=== PATIENT | male | born 1955 | race Caucasian/White ===

== ENCOUNTER 2017-10-17 00:56 | Observation (INO) | payer BC ==
[2017-10-17] MEDS ORDERED: Aspirin 81 MG Tab.Chew PO ONE (01:06)
[2017-10-17] MEDS ORDERED: Sodium Chloride 0.9% 10 ML Syringe FLUSH PRN (01:06)
[2017-10-17] MEDS ORDERED: Sodium Chloride 0.9% 2.5 ML Syringe FLUSH PRN (01:06)
[2017-10-17] MEDS ORDERED: Nitroglycerin 2% Oint 1 GM UD Packet TOP ONE (01:14)
--- NOTE | 2017-10-17 01:18 | EDM.PDOC ---
ED HPI GENERAL MEDICAL PROBLEM - General Chief Complaint: Chest Pain Stated Complaint: CHEST PAIN AND LEFT ARM NUMBNESS Time Seen by Provider: 10/17/17 01:05 - History of Present Illness INITIAL COMMENTS - FREE TEXT/NARRATIVE: HISTORY AND PHYSICAL: History of present illness: The patient is a [id number] male with a history of hypertension COPD and tobacco use who follows with a physician back in [place] but spends the majority of his time here in town and presents with complaints of episodic left- sided chest pain that radiates to his jaw and his left upper extremity. The patient says this been going on since Saturday morning, 4 days ago, and has been occurring sporadically mostly during the daytime when he is doing activities. He describes it as a sharp pain that radiates to jaw or arm and it is sometimes associated with shortness of breath but no nausea or diaphoresis. He says the discomfort only is brief and last only a few minutes and then goes away. Yesterday he had a total of 20 episodes of this discomfort. He says his been sleeping his usual amount and has not woken with the comfort tonight he came in because it did wake him and because he felt sweaty and it was more intense. He currently rates the discomfort is a 1/10. He has no abdominal complaints no vomiting no diarrhea no fevers chills cough or recent trauma to his chest. He says he had a stress test many years ago and his father had heart disease but he is unsure of the age. Patient does drink on a daily basis, beer, and smokes cigarettes but denies drug use. He has no leg pain or swelling. Review of systems: As per history of present illness and below otherwise all systems reviewed and negative. Past medical history: As per history of present illness and as reviewed below otherwise noncontributory. Surgical history: As per history of present illness and as reviewed below otherwise noncontributory. Social history: No reported history of drug or alcohol abuse. Family history: As per history of present illness and as reviewed below otherwise noncontributory. Physical exam: General: Well-developed well-nourished man who is mildly overweight and nontoxic and speaks clearly and easily in the ED. Vital signs of been reviewed by me. I asked him about his current blood pressure and he states that it usually does run on the high side but not as high as this evening. HEENT: Atraumatic, normocephalic, negative for conjunctival pallor or scleral icterus, mucous membranes moist, throat clear, neck supple, nontender, trachea midline. Lungs: Clear to auscultation but diminished in the bases with no work of breathing stridor or wheezing, breath sounds equal bilaterally, chest nontender. Heart: S1S2, regular, negative for clicks, rubs, or JVD. Abdomen: Soft, nondistended, nontender. Negative for masses or hepatosplenomegaly. NABS Pelvis: Stable nontender. Genitourinary: Deferred. Rectal: Deferred. Extremities: Atraumatic, negative for cords or calf pain. Neurovascular unremarkable. No pedal edema or leg asymmetry Neuro: Awake, alert, oriented. Cranial nerves II through XII unremarkable. Cerebellum unremarkable. Motor and sensory unremarkable throughout. Exam nonfocal. Diagnostics: EKG CBC CMP INR troponin chest x-ray Therapeutics: IV O2 monitor aspirin, Nitropaste for blood pressure management and ACS Patient has been stable in the ER with no chest pain and his blood pressure has improved to 154/93. I discussed all testing results with the patient and have recommended observation admission and he is agreeable. I will discuss this case with Dr. Pritchard our hospitalist and plan for 23 hour observation with serial EKGs and cardiac enzymes as well as blood pressure management Impression: Episodic chest pain with hypertension poorly controlled Definitive disposition and diagnosis as appropriate pending reevaluation and review of above. chest Pain Score (Numeric/FACES): 8 - Related Data Allergies Allergy/AdvReac Type Severity Reaction Status Date / Time No Known Allergies Allergy Verified 10/17/17 01:04 Home Meds: Home Meds Lisinopril 10 mg PO DAILY 10/17/17 [History] Pantoprazole [ProTONIX] 40 mg PO DAILY 10/17/17 [History] Propranolol HCl [Propranolol HCl ER] 1 cap PO DAILY 10/17/17 [History] Tamsulosin HCl 0.4 mg PO DAILY 10/17/17 [History] Social & Family History - Tobacco Use Smoking Status *Q: Current Every Day Smoker Years of Tobacco use: 40 Packs/Tins Daily: 1 - Caffeine Use Caffeine Use: Reports: Coffee Caffeine Use Comment: 2 cups daily - Recreational Drug Use Recreational Drug Use: No ED ROS GENERAL - Review of Systems Review Of Systems: ROS reveals no pertinent complaints other than HPI. ED EXAM, GENERAL - Physical Exam Exam: See Below (see dictation) Course - Vital Signs Last Recorded V/S: Last Vital Signs Temp 36.4 C 10/17/17 00:56 Pulse 90 10/17/17 00:56 Resp 20 10/17/17 00:56 BP 186/109 H 10/17/17 00:56 Pulse Ox 94 L 10/17/17 00:56 - Orders/Labs/Meds Orders: Active Orders 24 hr Category Date Time Status Patient Status [ADT] Stat ADT 10/17/17 01:57 Ordered Cardiac Monitoring [RC] . DIRECTED Care 10/17/17 01:05 Active EKG Documentation Completion [RC] STAT Care 10/17/17 01:05 Active Oxygen Therapy, ED [RC] ASDIRECTED Care 10/17/17 01:05 Active Pulse Oximetry [RC] ASDIRECTED Care 10/17/17 01:05 Active Chest 1V Frontal [CR] Stat Exams 10/17/17 01:06 Taken Sodium Chloride 0.9% [Saline Flush] Med 10/17/17 01:06 Active 10 ml FLUSH ASDIRECTED PRN Sodium Chloride 0.9% [Saline Flush] Med 10/17/17 01:06 Active 2.5 ml FLUSH ASDIRECTED PRN Saline Lock Insert [OM.PC] Stat Oth 10/17/17 01:05 Ordered Medication Orders Sodium Chloride (Saline Flush) 10 ml FLUSH ASDIRECTED PRN PRN Reason: Keep Vein Open Sodium Chloride (Saline Flush) 2.5 ml FLUSH ASDIRECTED PRN PRN Reason: Keep Vein Open Labs: Laboratory Tests 10/17/17 10/17/17 10/17/17 Range/Units 01:05 01:05 01:05 WBC 6.97 (4.0-11.0) K/uL RBC 5.07 (4.50-5.90) M/uL Hgb 15.5 (13.0-17.0) g/dL Hct 46.1 (38.0-50.0) % MCV 90.9 (80.0-98.0) fL MCH 30.6 (27.0-32.0) pg MCHC 33.6 (31.0-37.0) g/dL RDW Std Deviation 41.9 (28.0-62.0) fl RDW Coeff of Belinda 13 (11.0-15.0) % Plt Count 263 (150-400) K/uL MPV 10.30 (7.40-12.00) fL Neut % (Auto) 42.8 L (48.0-80.0) % Lymph % (Auto) 43.8 H (16.0-40.0) % [place]ax % (Auto) 10.8 (0.0-15.0) % Eos % (Auto) 1.7 (0.0-7.0) % Baso % (Auto) 0.9 (0.0-1.5) % Neut # (Auto) 3.0 (1.4-5.7) K/uL Lymph # (Auto) 3.1 H (0.6-2.4) K/uL [place]ax # (Auto) 0.8 (0.0-0.8) K/uL Eos # (Auto) 0.1 (0.0-0.7) K/uL Baso # (Auto) 0.1 (0.0-0.1) K/uL INR 1.02 (0.86-1.11) Sodium 142 (136-146) mmol/L Potassium 3.8 (3.5-5.1) mmol/L Chloride 103 (98-110) mmol/L Carbon Dioxide 29 (21-31) mmol/L BUN 14 (6.0-23.0) mg/dL Creatinine 0.8 (0.6-1.5) mg/dL Est Cr Clr Drug Dosing TNP Estimated GFR (MDRD) > 60.0 ml/min Glucose 100 (60-110) mg/dL Calcium 9.7 (8.8-10.8) mg/dL Total Bilirubin 0.4 (0.1-1.5) mg/dL AST 21 (5-40) IU/L ALT 18 (8-54) IU/L Alkaline Phosphatase 60 (40-150) Troponin I < 0.10 (0.0-0.29) NG/ML Total Protein 7.1 (6.0-8.0) g/dL Albumin 4.0 (3.4-4.8) g/dL Globulin 3.1 (2.0-3.5) g/dL Albumin/Globulin Ratio 1.3 (1.3-2.8) Meds: Medications Generic Name Dose Route Start Last Admin Trade Name Freq PRN Reason Stop Dose Admin Sodium Chloride 10 ml 10/17/17 01:06 Saline Flush FLUSH ASDIRECTED PRN Keep Vein Open Sodium Chloride 2.5 ml 10/17/17 01:06 Saline Flush FLUSH ASDIRECTED PRN Keep Vein Open Discontinued Medications Generic Name Dose Route Start Last Admin Trade Name Akil PRN Reason Stop Dose Admin Aspirin 324 mg 10/17/17 01:06 10/17/17 01:12 Aspirin PO 10/17/17 01:07 324 mg ONETIME ONE Administration Nitroglycerin 1 gm 10/17/17 01:14 10/17/17 01:17 Nitro-Bid 2% TOP 10/17/17 01:15 1 gm ONETIME ONE Administration Departure - Departure Time of Disposition: 01:58 Disposition: Refer to Observation Condition: Good Clinical Impression: Chest pain Qualifiers: Chest pain type: unspecified Qualified Code(s): R07.9 - Chest pain, unspecified - Discharge Information Referrals: PCP,None [Primary Care Provider] - Forms: ED Department Discharge - My Orders Last 24 Hours: My Active Orders 10/17/17 01:05 Cardiac Monitoring [RC] . DIRECTED EKG Documentation Completion [RC] STAT Oxygen Therapy, ED [RC] ASDIRECTED Pulse Oximetry [RC] ASDIRECTED Saline Lock Insert [OM.PC] Stat 10/17/17 01:06 Chest 1V Frontal [CR] Stat Sodium Chloride 0.9% [Saline Flush] 10 ml FLUSH ASDIRECTED PRN Sodium Chloride 0.9% [Saline Flush] 2.5 ml FLUSH ASDIRECTED PRN 10/17/17 01:57 Patient Status [ADT] Stat - Assessment/Plan Last 24 Hours: My Active Orders 10/17/17 01:05 Cardiac Monitoring [RC] . DIRECTED EKG Documentation Completion [RC] STAT Oxygen Therapy, ED [RC] ASDIRECTED Pulse Oximetry [RC] ASDIRECTED Saline Lock Insert [OM.PC] Stat 10/17/17 01:06 Chest 1V Frontal [CR] Stat Sodium Chloride 0.9% [Saline Flush] 10 ml FLUSH ASDIRECTED PRN Sodium Chloride 0.9% [Saline Flush] 2.5 ml FLUSH ASDIRECTED PRN 10/17/17 01:57 Patient Status [ADT] Stat
[2017-10-17 01:39] LABS: CHLORIDE,CL 103 mmol/L (98-110); SODIUM,NA 142 mmol/L (136-146)
[2017-10-17] MEDS ORDERED: LORazepam 2 MG/ML SDV IVPUSH PRN (02:42)
--- NOTE | 2017-10-17 09:05 | CR ---
EXAM DATE: 10/17/17 PATIENT'S AGE: 62 Patient: KAMILLE PATEL Facility: [place], [place] Site . Site : 1955 Study: XRay Chest [id number]/14/2017 1:41:24 AM Ordering Physician: Bert Zhang Final Report: INDICATION: Chest pain. TECHNIQUE: Chest radiograph 1 view COMPARISON: 08/27/2014. FINDINGS: Cardiovascular and mediastinum: The heart silhouette is normal in size and morphology. The mediastinum is normal in appearance. Lungs and pleural spaces: Both lungs are unremarkable in appearance. No sign of pleural effusion seen. No pneumothorax is identified. Bones and soft tissues: No significant findings. IMPRESSION: 1. No acute cardiopulmonary disease is seen. Dictated by Sy Rodriguez MD @ 10/17/2017 1:44:11 AM Dictated by: Sy Rodriguez MD @ 10/17/2017 01:44:16 (Electronic Signature) Report Signed by Proxy. [facility]
--- NOTE | 2017-10-17 09:23 | PCM.HP ---
H&P History of Present Illness - General Date of Service: 10/17/17 Admit Problem/Dx: Admission Diagnosis/Problem Admission Diagnosis/Problem Chest pain - History of Present Illness Initial Comments - Free Text/Narative: The patient is a [id number] male with a history of hypertension COPD and tobacco use admitted for chest pain. The patient says this been going on since Saturday morning, 4 days ago, and has been occurring sporadically mostly during the daytime when he is doing activities. He describes it as a sharp pain that radiates to jaw or arm and it is sometimes associated with shortness of breath but no nausea or diaphoresis. He did have left arm numbness. He says the discomfort only is brief and last only a few minutes and then goes away.He says his been sleeping his usual amount and has not woken with the comfort tonight he came in because it did wake him and because he felt sweaty and it was more intense with left arm numbness. He has no abdominal complaints no vomiting no diarrhea no fevers chills cough or recent trauma to his chest. He says he had a stress test many years ago and his father had heart disease and at age 65. Patient does drink on a daily basis, beer, and smokes cigarettes but denies drug use. chest Pain Score (Numeric/FACES): 8 - Related Data Allergies/Adverse Reactions: Allergies Allergy/AdvReac Type Severity Reaction Status Date / Time No Known Allergies Allergy Verified 10/17/17 03:08 Home Medications: Home Meds Aspirin [Lo-Dose Aspirin EC] 81 mg PO DAILY #30 tablet. 10/17/17 [Rx] Lisinopril 10 mg PO DAILY 10/17/17 [History] Pantoprazole [ProTONIX] 40 mg PO DAILY 10/17/17 [History] Propranolol HCl [Propranolol HCl ER] 1 cap PO DAILY 10/17/17 [History] Tamsulosin HCl 0.4 mg PO DAILY 10/17/17 [History] Past Medical History - Past Health History Medical/Surgical History: Denies Medical/Surgical History Cardiovascular History: Reports: Hypertension Respiratory History: Reports: COPD Oncologic (Cancer) History: Reports: Prostate - Past Surgical History Male Surgical History: Reports: Prostate Biopsy, Other (See Below) Other Male Surgeries/Procedures: Prostate cancer Social & Family History - Family History Family Medical History: Noncontributory - Tobacco Use Smoking Status *Q: Current Every Day Smoker Years of Tobacco use: 40 Packs/Tins Daily: 1 Used Tobacco, but Quit: No Second Hand Smoke Exposure: No - Caffeine Use Caffeine Use: Reports: Coffee Caffeine Use Comment: 2 cups daily - Alcohol Use Days Per Week of Alcohol Use: 7 Number of Drinks Per Day: 8 Total Drinks Per Week: 56 Date of Last Drink: 10/16/17 Time of Last Drink: 20:00 - Recreational Drug Use Recreational Drug Use: No H&P Review of Systems - Review of Systems: Review Of Systems: See Below General: Reports: No Symptoms HEENT: Reports: No Symptoms Pulmonary: Reports: No Symptoms Cardiovascular: Reports: No Symptoms Gastrointestinal: Reports: No Symptoms Genitourinary: Reports: No Symptoms Musculoskeletal: Reports: No Symptoms Skin: Reports: No Symptoms Psychiatric: Reports: No Symptoms Neurological: Reports: No Symptoms Hematologic/Lymphatic: Reports: No Symptoms Immunologic: Reports: No Symptoms Exam - Exam Exam: See Below - Vital Signs Vital Signs: Last Vital Signs Temp 97.6 F 10/17/17 07:45 Pulse 67 10/17/17 07:45 Resp 20 10/17/17 07:45 BP 149/84 H 10/17/17 07:45 Pulse Ox 93 L 10/17/17 07:45 Weight: 85.4 kg - Exam General: Alert, Oriented HEENT: Conjunctiva Clear, EOMI Neck: Supple, Trachea Midline Lungs: Clear to Auscultation, Normal Respiratory Effort Cardiovascular: Regular Rate, Regular Rhythm GI/Abdominal Exam: Normal Bowel Sounds Rectal (Males) Exam: Normal Exam Extremities: Normal Inspection Skin: Warm, Dry Neurological: Cranial Nerves Intact Psychiatric: Alert, Normal Affect, Normal Mood - Patient Data Lab Results Last 24 hrs: Laboratory Results - last 24 hr 10/17/17 Range/Units 07:08 Troponin I < 0.10 (0.0-0.29) NG/ML Result Diagrams: 10/17/17 01:05 10/17/17 01:05 *Q Meaningful Use (ADM) - VTE *Q VTE Criteria *Q: - Stroke *Q Stroke Criteria *Q: - AMI *Q AMI Criteria *Q: Problem List Initiated/Reviewed/Updated: Yes Orders Last 24hrs: Active Orders 24 hr Category Date Time Status CIWAA Assessment [RC] Q4H Care 10/17/17 02:42 Active Telemetry Monitoring [Cardiac Monitoring] [RC] Q8H Care 10/17/17 02:09 Active Heart Healthy Diet [DIET] Diet 10/17/17 Breakfast Active TROPONIN I [CHEM] Q6H Lab 10/17/17 13:00 Ordered LORazepam [Ativan] Med 10/17/17 02:42 Active See Protocol IVPUSH Q4H PRN Medication Orders Lorazepam (Ativan) 0 mg IVPUSH Q4H PRN; Protocol PRN Reason: Withdrawal Symptoms Sodium Chloride (Saline Flush) 10 ml FLUSH ASDIRECTED PRN PRN Reason: Keep Vein Open Sodium Chloride (Saline Flush) 2.5 ml FLUSH ASDIRECTED PRN PRN Reason: Keep Vein Open Assessment/Plan Comment:: 62 yo male admitted for chest pain CP: EKG no acute ST changes. Troponin x 2 negative. nitropaste helping with chest pain HTN: resume home medications of lisinopril, propanolol GERD; continue protonix DISCHARGE SUMMARY 62 yo male with history of HTN admitted for chest pain. His EKG did not reveal any acute ST changes.CXR negative. Troponin x 3 negative. His CBC and BMP unremarkable. Lipid panel revealed TG 202, CH 192, LDL 89, HDL 63. He was monitored in telemetry which did not reveal any arrhythmias. He is requesting to go home today. He is chest pain free. He is discharged with aspirin 81 mg po qd and to resume home medications. He is to follow up PCP and senior cost analyst Dr. Contreras. A script for outpatient stress test given. He had agreed.
[2017-10-17] MEDS ORDERED: Pantoprazole 40 MG Tab.CR PO SCH (09:30)
[2017-10-17] MEDS ORDERED: Lisinopril 10 MG Tab PO SCH (09:30)
[2017-10-17] MEDS ORDERED: Aspirin 81 MG Tab.EC PO SCH (09:30)
[2017-10-17] MEDS ORDERED: Propranolol 60 MG Cap.ER PO SCH (12:15)
[2017-10-18] MEDS ORDERED: Tamsulosin 0.4 MG Cap.ER PO SCH (09:00)
== END 2017-10-17 15:35 | disposition home or self-care (01) ==
LOC: MW.ED 00:56 → MW.MS 01:57 → UNDODISOB 15:35
PROVIDERS: ADMIT Internal Medicine; ATTEND Internal Medicine
DX: R07.9 Chest pain, unspecified (principal); I10 Essential (primary) hypertension; J44.9 Chronic obstructive pulmonary disease, unspecified; Z98.890 Other specified postprocedural states; F17.210 Nicotine dependence, cigarettes, uncomplicated; Z79.82 Long term (current) use of aspirin; Z79.899 Other long term (current) drug therapy
CPT/HCPCS: 36415; 71010; 80053; 80061; 84484; 85025; 85610; 99285; A9270; G0378

== ENCOUNTER 2020-07-07 06:29 | Day surgery (SDC) | payer BC ==
[2020-07-07] MEDS ORDERED: Lactated Ringers 1,000 ML IV SCH (06:45)
--- NOTE | 2020-07-07 07:19 | PCM.PREANE ---
Preanesthetic Assessment - Anesthesia/Transfusion/Family Hx Anesthesia History: Prior Anesthesia Without Reaction Family History of Anesthesia Reaction: No Transfusion History: No Prior Transfusion(s) - Review of Systems General: No Symptoms Pulmonary: No Symptoms Cardiovascular: No Symptoms Gastrointestinal: No Symptoms Neurological: No Symptoms Other: Reports: None - Physical Assessment NPO Status Date: 07/06/20 Vital Signs: Last Vital Signs Temp 97.5 F 07/07/20 07:06 Pulse 79 07/07/20 07:06 Resp 16 07/07/20 07:06 BP 161/95 H 07/07/20 07:06 Pulse Ox 96 07/07/20 07:06 Height: 5 ft 10 in Weight: 89.811 kg ASA Class: 2 Mental Status: Alert & Oriented x3 Airway Class: Mallampati = 2 Dentition: Reports: Bridge (lateral mandibular) ROM/Head Extension: Full Lungs: Clear to Auscultation, Normal Respiratory Effort Cardiovascular: Regular Rate, Regular Rhythm - Allergies Allergies/Adverse Reactions: Allergies Allergy/AdvReac Type Severity Reaction Status Date / Time No Known Allergies Allergy Verified 07/07/20 07:07 - Blood Blood Available: No - Anesthesia Plan Pre-Op Medication Ordered: None - Acknowledgements Anesthesia Type Planned: General Anesthesia (tiva) Pt an Appropriate Candidate for the Planned Anesthesia: Yes Alternatives and Risks of Anesthesia Discussed w Pt/Guardian: Yes Pt/Guardian Understands and Agrees with Anesthesia Plan: Yes PreAnesthesia Questionnaire - Past Health History Medical/Surgical History: Denies Medical/Surgical History Cardiovascular History: Reports: Hypertension Respiratory History: Reports: COPD Other Respiratory History: uses rescue inhaler about once a week Gastrointestinal History: Reports: Colon Polyp, GERD, Hemorrhoids, PUD, Other (See Below) Other Gastrointestinal History: hx of anal fissures Genitourinary History: Reports: Prostate Disorder Other Genitourinary History: hx of prostate cancer- had radiation implants Musculoskeletal History: Reports: Fracture Other Musculoskeletal History: states hx of "multiple" fx Psychiatric History: Reports: Anxiety Other Psychiatric History: no medication Oncologic (Cancer) History: Reports: Prostate Other Dermatologic History: thinks he has eczema in right hand- no medication - Past Surgical History Head Surgeries/Procedures: Reports: None GI Surgical History: Reports: Appendectomy, Colonoscopy Male Surgical History: Reports: Prostate Biopsy, Other (See Below) Other Male Surgeries/Procedures: Prostate cancer Musculoskeletal Surgical History: Reports: Arthroscopic Knee, Other (See Below) Other Musculoskeletal Surgeries/Procedures:: closed reduction of fx elbow - SUBSTANCE USE Smoking Status *Q: Current Every Day Smoker Tobacco Use Within Last Twelve Months: Cigarettes Days Per Week of Alcohol Use: 7 Number of Drinks Per Day: 6 Total Drinks Per Week: 42 Recreational Drug Use History: No - HOME MEDS Home Medications: Home Meds Lisinopril 10 mg PO DAILY 10/17/17 [History] Pantoprazole [ProTONIX] 40 mg PO DAILY 10/17/17 [History] Tamsulosin HCl 0.4 mg PO DAILY 10/17/17 [History] Albuterol [Ventolin HFA] 1 - 2 puff INH Q4H PRN 07/01/20 [History] Budesonide/Formoterol [Symbicort 80-4.5 MCG] 2 puff INH BID 07/01/20 [History] Propranolol [Inderal LA] 80 mg PO DAILY 07/01/20 [History] hydroCHLOROthiazide [Hydrochlorothiazide] 12.5 mg PO DAILY 07/01/20 [History] - CURRENT (IN HOUSE) MEDS Current Meds: Current Medications Lactated Ringer's (Ringers, Lactated) 1,000 mls @ 125 mls/hr IV ASDIRECTED [facility] Last Admin: 07/07/20 07:07 Dose: 125 mls/hr Documented by:
[2020-07-07] MEDS ORDERED: Propofol 200 MG/20 ML SDV ONE (07:41)
[2020-07-07] MEDS ORDERED: Midazolam 1 MG/ML 2 ML SDV ONE (07:41)
[2020-07-07] MEDS ORDERED: Glycopyrrolate 0.2 MG/ML SDV ONE (07:43)
--- NOTE | 2020-07-07 08:59 | PCM.POSTAN ---
POST ANESTHESIA ASSESSMENT - MENTAL STATUS Mental Status: Alert - VITAL SIGNS Vital Signs: Last Vital Signs Temp 36.4 C 07/07/20 07:06 Pulse 71 07/07/20 08:57 Resp 14 07/07/20 08:57 BP 121/82 07/07/20 08:57 Pulse Ox 94 L 07/07/20 08:57 - RESPIRATORY Respiratory Status: Respiratory Rate WNL - CARDIOVASCULAR CV Status: Pulse Rate WNL - GASTROINTESTINAL GI Status: No Symptoms - POST OP HYDRATION Hydration Status: Adequate & Stable
[2020-07-07] MEDS ORDERED: cefOXitin 1 GM Vial ONE (09:00)
[2020-07-07] MEDS ORDERED: Sodium Chloride 0.9% 20 ML ONE (09:00)
--- NOTE | 2020-07-07 09:02 | PCM.OPNOTE ---
- General Post-Op/Procedure Note Date of Surgery/Procedure: 07/07/20 Operative Procedure(s): Colonoscopy and hot snare polypectomy Findings: Colon polyp at 80cm, ascending colon. # [id number] Pre Op Diagnosis: History of colon polyps Post-Op Diagnosis: colon polyp, hemorroids Anesthesia Technique: Moderate Sedation Primary Surgeon: Jose J Pritchard Pathology: colon polyp Complications: None Condition: Good
--- NOTE | 2020-07-07 10:09 | PCM48HPAN ---
Post Anesthesia Note - EVALUATION WITHIN 48HRS OF ANESTHETIC Vital Signs in Normal Range: Yes Patient Participated in Evaluation: Yes Respiratory Function Stable: Yes Airway Patent: Yes Cardiovascular Function Stable: Yes Hydration Status Stable: Yes Pain Control Satisfactory: Yes Nausea and Vomiting Control Satisfactory: Yes Mental Status Recovered: Yes Vital Signs: Last Vital Signs Temp 97.5 F 07/07/20 07:06 Pulse 71 07/07/20 08:57 Resp 14 07/07/20 08:57 BP 121/82 07/07/20 08:57 Pulse Ox 94 L 07/07/20 08:57
--- NOTE | 2020-07-08 09:46 | OR ---
SURGEON: ROSEANN GARG MD DATE OF PROCEDURE: 07/07/2020 PREOPERATIVE DIAGNOSIS: History of colon polyps. POSTOPERATIVE DIAGNOSIS: Colon polyp at approximately 80 cm, appeared to be in the ascending-hepatic flexure area. PROCEDURES PERFORMED: 1. Colonoscopy. 2. Hot snare polypectomy. PRIMARY SURGEON: Roseann Garg MD ANESTHESIA: General. EXTENT OF COLONOSCOPY: To the cecum. WITHDRAWAL TIME: 13 minutes. LIMITATIONS: None. BOWEL PREP: Very good. REASON FOR PROCEDURE: The patient is a pleasant 65-year-old gentleman who said 2 years ago he had a colonoscopy with polyps removed. He was told to have another one in 1 year. He denies any blood in his stool. He denies any family history of colon cancer. The patient also was having some rectal pain. He has a history of rectal fissures in the past. I saw him in the clinic, did give him some ointment for fissure. The patient said this stung a little bit, and he was switched to Preparation H. He said with Preparation H his hemorrhoids improved, and he was no longer having rectal pain until during the bowel prep, in which he said he can kind of feel them starting again. PROCEDURE IN DETAIL: Physical exam was performed. Major risks, benefits, goals, and alternatives of the procedure were provided to the patient in detail. The patient verbalizes consent for same. The patient was then connected to appropriate monitoring, placed an IV, started EKG, pulse, pulse oximetry, and made preparation for monitoring throughout the procedure. Preoperative time-out was performed. Sedation was provided by anesthesiologist. The patient was placed in left lateral decubitus position. Sedation was began. After an adequate sedation was achieved, digital rectal exam was performed. The patient again had some external hemorrhoidal skin tissue on right and left side, noninflamed. Now, a well-lubricated Olympus colonoscope was entered in the rectum and advanced under direct visualization to the level of the cecum. Cecum was identified by both visual and anatomic landmarks. Scope taken to level of the cecal cap. Scope was then slowly withdrawn and showed normal color, texture, anatomy, and integrity of the mucosa from the cecum to the anal canal. The patient did have some light liquid stool, which was suctioned and irrigated out with excellent look at the mucosa. At 80 cm at around what appeared to be the end of the ascending splenic/hepatic flexure, the patient did have a polyp. This was removed with a hot snare polypectomy. There was good hemostasis. The polyp appeared to be completely removed. The polyp's defect was closed with a Resolution clip. Scope was continued to be withdrawn. No other polyps or diverticulosis was seen. Scope was retroflexed in the rectum. Scope was then completely removed, and the procedure was terminated. ENDOSCOPIC DIAGNOSES: 1. Polyp at 80 cm in the ascending colon. 2. Hemorrhoids, noninflamed. RECOMMENDATIONS: Followup colonoscopy will depend on pathology, most likely another one in 5 years, sooner if he develops signs or symptoms, such as change in bowel habits or blood in stool. The patient may also follow up in the clinic to go over if he has flare-up of his hemorrhoids again, but currently he seems pretty happy with just Preparation H treatment. ONUR / ELAINE /[id number]
== END 2020-07-07 09:40 | disposition home or self-care (01) ==
LOC: MW.SDS 06:29
PROVIDERS: ATTEND Surgery
DX: D12.2 Benign neoplasm of ascending colon (principal); K64.4 Residual hemorrhoidal skin tags; J44.9 Chronic obstructive pulmonary disease, unspecified; F17.210 Nicotine dependence, cigarettes, uncomplicated; I10 Essential (primary) hypertension; Z86.010 Personal history of colon polyps; Z98.890 Other specified postprocedural states; Z79.899 Other long term (current) drug therapy; Z01.812 Encounter for preprocedural laboratory examination; Z20.828 Contact with and (suspected) exposure to other viral communicable diseases; Z87.19 Personal history of other diseases of the digestive system
CPT/HCPCS: 45385; 87635; J0694; J2250; J2704; J3490; J7120; U0002